=== PATIENT | female | born 1990 | race Caucasian/White ===

== ENCOUNTER 2019-10-15 22:39 | Emergency (ER) | payer MEDICAID ==
[~2019-10-15] VITALS: Ht 167.6 cm; Wt 138.3 kg
[2019-10-15 22:42] VITALS: BP 131/86
[2019-10-15] MEDS ORDERED: HYDROcodone/APAP 5/325 TABLET PO ONE (23:00)
[2019-10-15] MEDS ORDERED: HYDROcodone/APAP 5/325 TABLET ONE (23:10)
[2019-10-15] MEDS ORDERED: ONDANSETRON ODT 4 MG ONE (23:12)
--- NOTE | 2019-10-15 23:28 | NUR ---
ICE PACK PLACED ON PATIENTS WRIST AND ELEVATED WITH TOWELS, PATIENT RECCIEVED PO PAIN MEDICATION, AWAITING FOR XRAY RESULTS
[2019-10-15] MEDS ORDERED: ONDANSETRON ODT 4 MG PO ONE (23:30)
[2019-10-16] MEDS ORDERED: KETOROLAC 30 MG/1 ML ONE (00:08)
--- NOTE | 2019-10-16 00:23 | NUR ---
TECH PLACED SPLINT ON PATIENT, PATIENT TOLERATED IT WELL. DISCHARGE PAPERWORK GIVEN TO PATIENT WITH EXPLAINATION ON HOW TO TAKE MEDICATIONS. PATIENT AND SO AMBULATED OUT OF THE ER
[2019-10-16] MEDS ORDERED: KETOROLAC 30 MG/1 ML IM ONE (00:30)
== END 2019-10-16 00:35 | disposition home or self-care (01) ==
LOC: ED 23:27
DX: G89.11 Acute pain due to trauma (principal); M25.531 Pain in right wrist; R00.0 Tachycardia, unspecified; W01.0XXA Fall on same level from slipping, tripping and stumbling without subsequent striking against object, initial encounter; Y93.89 Activity, other specified; Y92.89 Other specified places as the place of occurrence of the external cause; Y99.8 Other external cause status
CPT/HCPCS: 29125; 73110; 96372; 99283; J1885; Q0162